=== PATIENT | female | born 2000 | race Caucasian/White ===

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

== ENCOUNTER 2024-07-11 10:38 | Emergency (ER) | payer OTHER ==
[~2024-07-11] VITALS: Ht 157.5 cm; Wt 59.0 kg
[2024-07-11 11:38] LABS: BASOPHILS ABSOLUTE AUTO 0.03 K/mm3 (0.00-0.23); BASOPHILS PERCENT AUTO 0 % (0-2); EOSINOPHILS ABSOLUTE AUTO 0.04 K/mm3 (0.00-0.68); EOSINOPHILS PERCENT AUTO 0 % (0-6); Hematocrit 38.5 % (33.0-51.0); Hemoglobin 12.6 g/dL (11.5-16.0); IMMATURE GRAN ABSOLUTE AUTO 0.03 K/mm3 (0.00-0.10); IMMATURE GRAN PERCENT AUTO 0 % (0-1); LYMPHOCYTES PERCENT AUTO 9 % (21-46); MONOCYTES ABSOLUTE AUTO 0.68 K/mm3 (0.16-1.47); MONOCYTES PERCENT AUTO 6 % (4-13); Mean Corpuscular HGB 28.7 pg (26.0-34.0); Mean Corpuscular HGB Conc 32.7 g/dL (31.5-36.5); Mean Corpuscular Volume 88 fL (80-100); Mean Platelet Volume 10.2 fL (9.1-12.4); NEUTROPHILS ABSOLUTE AUTO 9.72 K/mm3 (1.96-9.15); NEUTROPHILS PERCENT AUTO 85 % (41-73); Platelet Count 417 K/mm3 (150-400); RDW Coefficient Variation 13.2 % (11.7-14.2); RDW Standard Deviation 41.9 fL (35.1-46.3); Red Blood Cell Count 4.39 M/mm3 (3.80-5.20)
[2024-07-11 12:02] LABS: Alanine Aminotransfer (ALT/SGP 15 U/L (12-78); Albumin, Blood 3.6 g/dL (3.4-5.0); Albumin/Globulin Ratio 0.8 (0.8-1.8); Alk Phos 98 U/L (50-136); Anion Gap 10 mmol/L (3-11); Aspartate Aminotrans (AST/SGOT 14 U/L (12-37); Beta HCG, Quantitative, Serum <1 mIU/mL (0-3); Bilirubin, Total 0.5 mg/dL (0.1-1.0); Blood Urea Nitrogen 7 mg/dL (8-24); Bun/Creatinine Ratio 9.5 (12.0-20.0); CO2, Blood 24 mmol/L (21-32); Calcium, Blood 9.5 mg/dL (8.5-10.1); Chloride, Blood 108 mmol/L (98-108); Creatinine, Blood 0.73 mg/dL (0.40-1.00); Globulin, Blood 4.7 g/dL (2.2-4.0); Glomerular Filtration Rate 119 (60-); Glucose, Blood 89 mg/dL (70-99); Potassium, Blood 4.1 mmol/L (3.5-5.5); Sodium, Blood 138 mmol/L (136-145); Total Protein, Blood 8.3 g/dL (6.4-8.2)
[2024-07-11] MEDS ORDERED: Ketorolac Tromethamine 15mg Vial IV ONE (13:25)
[2024-07-11] MEDS ORDERED: Famotidine 10 MG/ML 2ML Vial IV ONE (13:25)
[2024-07-11] MEDS ORDERED: NS 1,000 ML IV SCH (13:25)
[2024-07-11 13:36] LABS: Source, Urine Clean Catch
[2024-07-11 13:53] LABS: Appearance, Urine Clear (Clear); Bilirubin, Urine Neg (Neg); Blood, Urine 1+ (Neg); Color, Urine Yellow (P-Yellow); Glucose Qualitative, Urine Neg (Neg); Ketones, Urine 2+ (Neg); Leukocyte Esterase, Urine 1+ (Neg); Nitrite, Urine Neg (Neg); Protein, Urine 1+ (Neg); Urobilinogen, Urine NORM (Normal)
[2024-07-11 14:19] LABS: Red Blood Cells, Urine 0-2 /hpf (0-2); White Blood Cells, Urine 0-2 /hpf (0-5)
[2024-07-11 14:20] LABS: Bacteria Rare /hpf; Squamous Epithelial Cells Few /hpf (Few)
[2024-07-11] MEDS ORDERED: FAMO20 PO (14:27)
[2024-07-11 14:28] VITALS: BP 118/73
== END 2024-07-11 14:31 | disposition home or self-care (01) ==
LOC: ER 10:38
PROVIDERS: Physician Assistant; Student in an Organized Health Care Education/Training Program
DX: K52.9 Noninfective gastroenteritis and colitis, unspecified (principal); K21.9 Gastro-esophageal reflux disease without esophagitis
CPT/HCPCS: 74177; 80053; 81001; 83690; 84702; 85025; 87086; 96374; 96375; 99284-25; J1885; J7030; Q9967

== ENCOUNTER → 2024-09-16 | Outpatient (CLI) | payer OTHER ==
[~2024-09-16] MED LIST changes: +FAMO20 PO
[2024-09-16 14:10] LABS: BASOPHILS ABSOLUTE AUTO 0.05 K/mm3 (0.00-0.23); BASOPHILS PERCENT AUTO 1 % (0-2); EOSINOPHILS ABSOLUTE AUTO 0.14 K/mm3 (0.00-0.68); EOSINOPHILS PERCENT AUTO 2 % (0-6); Hematocrit 35.7 % (33.0-51.0); Hemoglobin 11.7 g/dL (11.5-16.0); IMMATURE GRAN ABSOLUTE AUTO 0.02 K/mm3 (0.00-0.10); IMMATURE GRAN PERCENT AUTO 0 % (0-1); LYMPHOCYTES PERCENT AUTO 21 % (21-46); MONOCYTES ABSOLUTE AUTO 0.88 K/mm3 (0.16-1.47); MONOCYTES PERCENT AUTO 9 % (4-13); Mean Corpuscular HGB 27.2 pg (26.0-34.0); Mean Corpuscular HGB Conc 32.8 g/dL (31.5-36.5); Mean Corpuscular Volume 83 fL (80-100); Mean Platelet Volume 10.1 fL (9.1-12.4); NEUTROPHILS ABSOLUTE AUTO 6.47 K/mm3 (1.96-9.15); NEUTROPHILS PERCENT AUTO 68 % (41-73); Platelet Count 445 K/mm3 (150-400); RDW Coefficient Variation 13.2 % (11.7-14.2); White Blood Cell Count 9.56 K/mm3 (4.00-11.30)
[2024-09-16 14:19] LABS: Albumin, Blood 3.5 g/dL (3.4-5.0); Albumin/Globulin Ratio 0.7 (0.8-1.8); Bilirubin, Total 0.2 mg/dL (0.1-1.0); Bun/Creatinine Ratio 11.4 (12.0-20.0); Calcium, Blood 9.2 mg/dL (8.5-10.1); Creatinine, Blood 0.79 mg/dL (0.40-1.00); Globulin, Blood 5.1 g/dL (2.2-4.0); Potassium, Blood 3.7 mmol/L (3.5-5.5); Total Protein, Blood 8.6 g/dL (6.4-8.2)
== END ==
LOC: LAB 14:06 → LAB SHORT 14:06
PROVIDERS: Physician Assistant
DX: R10.9 Unspecified abdominal pain (principal)
CPT/HCPCS: 80053; 83690; 85025

== ENCOUNTER → 2024-12-02 | Outpatient (CLI) | payer OTHER | LOC: LAB SHORT 16:44 → LAB 16:44 | PROVIDERS: Obstetrics & Gynecology | DX: Z01.419 Encounter for gynecological examination (general) (routine) without abnormal findings (principal) | CPT/HCPCS: G0123 ==